=== PATIENT | female | born 1995 | race Caucasian/White ===

== ENCOUNTER 2020-01-28 12:58 | Outpatient (REF) | payer MEDICAID, SELFPAY | END 2020-01-28 13:18 | LOC: NCHCN 12:58 | PROVIDERS: PCP Pediatrics; Visit Provider Nurse Practitioner Family | DX: R30.0 Dysuria (principal) | CPT/HCPCS: 87086 ==

== ENCOUNTER 2020-02-12 19:33 | Outpatient (REF) | payer MEDICAID, SELFPAY ==
[2020-02-15 09:40] LABS: COVID-19 RT-PCR Result NEGATIVE (Negative)
== END 2020-02-12 19:53 ==
LOC: NCHCN 19:33
PROVIDERS: PCP Pediatrics; Visit Provider Nurse Practitioner Family
DX: Z20.828 Contact with and (suspected) exposure to other viral communicable diseases (principal)
CPT/HCPCS: U0003

== ENCOUNTER 2020-06-13 13:09 | Outpatient (REF) | payer MEDICAID, SELFPAY ==
--- NOTE | 2020-06-13 11:35 | PAPFT_PTH ---
PATIENT: Melina Robledo LOC: [facility]#:[id number] AGE/SX: 24/F ROOM: RE06/13/[address]: Inge Chatman : 1995 BED: DIS: 06/13/2020 SPEC #: [id number] RECD: 06/16/20 12:54 STATUS: NICOLA REChayo #: [id number] LAMAR: 06/13/20 11:[address]: Inge Chatman DEPT: [facility] Cytology RECD BY: Alyson Flanagan ENTERED: 06/16/20 12:54 SP TYPE: PAPFT OTHR DR: Renny Guzman MD Tissues: 1 - CX/ENDOCX FOR PAP SMEARS Procedures: PAP THIN PREP/[facility] Screening Comments: [id number] (CHLAMYDIA/GC)
[2020-06-17 14:14] LABS: Chlamydia Result Negative (Negative); GC Result Negative (Negative)
== END 2020-06-13 13:10 | disposition home or self-care (01) ==
LOC: NCHCN 13:09
PROVIDERS: PCP Pediatrics; Visit Provider Nurse Practitioner Family
DX: Z12.4 Encounter for screening for malignant neoplasm of cervix (principal); Z11.3 Encounter for screening for infections with a predominantly sexual mode of transmission; Z01.419 Encounter for gynecological examination (general) (routine) without abnormal findings
CPT/HCPCS: 87491; 87591; 88142

== ENCOUNTER 2021-02-17 21:01 | Emergency (ER) | payer MEDICAID, SELFPAY ==
--- NOTE | 2021-02-17 21:00 | DI.CT_ITS ---
Exam(s) CT RENAL COLIC WO EXAM: CT RENAL COLIC WO CLINICAL HISTORY: left flank pain, sudden onset. TECHNIQUE: Imaging Protocol: Axial computed tomography images with coronal and sagittal reformatted images were created and reviewed. COMPARISON: No exams were available for comparison FINDINGS: ABDOMEN: Lung Bases: Normal where visualized. Liver: Normal density. No measurable mass. Gallbladder and biliary tract: No radiodense calculus or biliary ductal dilation. Pancreas: Normal density, no abnormal calcifications or inflammatory process. Spleen: Normal. Kidneys: Normal size, contour and axis.Bilateral nephrolithiasis. There is a 4 mm stone in the proxi mal left ureter causing moderate hydronephrosis. No masses seen. Adrenal glands: No mass is seen. Lymph nodes: Within normal limits. Abdominal Aorta: Abdominal portion non-dilated. PELVIS: Bladder:Symmetric distention, no gross wall thickening. Bowel: No obstruction or bowel wall thickening. No evidence of appendicitis. Peritoneal cavity: There is a trace amount of free fluid in the cul-de-sac which may be physiologic. No free air. Reproductive organs: There is an IUD in good position. There is a 3.1 cm cyst in the left adnexa lik nigel ovarian in origin. Bones: Within normal limits. Soft Tissues: Within normal limits. IMPRESSION: 4 mm proximal left ureteral stone causing moderate hydronephrosis. RADIATION DOSE DELIVERED: 606.91mGy.cm Total DLP DATA REPOSITORY: All CT scans at this facility are submitted to the National Radiology Data Registry (NRDR) Dose Index Registry (DIR) with the [employer] (ACR). RADIATION OPTIMIZATION: All CT scans at this facility use at least one of these dose optimization te chniques: automated exposure control; mA and/or kV adjustment per patient size (includes targeted exa ms where dose is matched to clinical indication); or iterative reconstruction.
[2021-02-17 21:03] VITALS: BP 124/87; PULSE 86; RESP 18; TEMP 36.7; O2SAT 100
[2021-02-17 21:28] LABS: Abs Immature Grans 0.02 10^3/uL (0.0-0.06); Absolute Basophil Count 0.04 10^3/uL (0.0-0.2); Absolute Eosinophil Count 0.19 10^3/uL (0.0-0.7); Absolute Lymphocyte Count 2.44 10^3/uL (1.2-3.4); Absolute Monocyte Count 0.56 10^3/uL (0.1-0.8); Absolute Neutrophil Count 4.76 10^3/uL (1.2-6.7); Basophils % 0.5; Eosinophils % 2.4; HCT 38.5 % (36.0-46.0); HGB 12.9 g/dL (11.2-15.7); Immature Grans % 0.2; Lymphocytes % 30.5; MCH 30.4 pg (27.0-33.0); MCHC 33.5 % (32.0-36.0); MCV 90.6 fL (80-95); MPV 10.4 fL (8.0-11.0); Neutrophils % 59.4; Nucleated RBC 0 %; Platelet Count 221 10^3/uL (130-400); RBC 4.25 10^6/uL (3.93-5.22); RDW 11.9 % (11.7-14.6); RDW-SD 39.9 fL; WBC 8.01 10^3/uL (4.4-10.8)
[2021-02-17 21:42] LABS: ALT 17 U/L (14-59); AST 16 U/L (15-37); Albumin 4.4 g/dL (3.4-5.0); Alkaline Phosphatase 89 U/L (46-116); BUN 11 mg/dL (7-18); Bilirubin, Total 0.3 mg/dL (0.2-1.0); Chloride 103 mmol/L (98-107); Glucose 100 mg/dL (74-106); Sodium 140 mmol/L (136-145); Total Protein 7.7 g/dL (6.4-8.2)
[2021-02-17] MEDS: Ketorolac 30 MG/ML VIAL IVP (21:45)
[2021-02-17] MEDS: Normal Saline 1,000 ML 1000 ML IV (22:08)
[2021-02-17 22:28] LABS: Bilirubin Negative (Negative); Blood Large (Negative); Clarity Cloudy (Clear); Glucose Negative (Negative); Ketones Trace mg/dL (Negative); Leukocyte Esterase Negative (Negative); Nitrite Negative (Negative); Specific Gravity >= 1.030 (1.005-1.025); Urobilinogen 0.2 EU/dL (Up TO 0.2)
--- NOTE | 2021-02-17 22:28 | W.ED.GENAD ---
Discharge Plan Disposition Patient Disposition: HOME Condition: Good Discharge Details Clinical Impression: Kidney stone Primary Care Provider: Inge Chatman ED Provider: Santiago Gomez Home Meds and New Rx's Prescriptions: New tamsulosin [Flomax] 0.4 mg capsule 0.4 mg PO DAILY Qty: 7 RF: 0 Continued Mirena 1 EACH intrauterine device 1 ea Intrauterine ONCE Qty: 1 RF: 0 tretinoin 20 GM cream 1 amanda Topical HS Qty: 20 RF: 0 clindamycin-benzoyl peroxide [Benzaclin] 25 GM gel 1 amanda Topical DAILY Qty: 25 RF: 0 Discharge Instructions Instructions: Kidney Stones (ED) Additional Instructions: At this time your CAT scan shows evidence of a kidney stone. It will take some time to pass. Please take the Flomax as directed. Please take Tylenol and Motrin as needed for pain. We have given you a few Adamant pain pills to be used as needed only for breakthrough pain. They do contain Tylenol in them, so do not take any Tylenol with them. If you notice any worsening of your symptoms, or any new symptoms such as vomiting, diarrhea, fever, chills, shortness of breath, chest pain, numbness, weakness, or fainting , please return immediately to the emergency department for reevaluation. Please follow up with your primary care provider as soon as possible for reassessment and reevaluation. As always, it was a pleasure participating in your medical care today. Referrals: Inge Chatman [Primary Care Provider] - Medical Decision Making 25-year-old female with no significant past medical history presents today for evaluation of left flank pain. Patient states that 1 hour ago she developed sudden onset left flank pain she describes as achy and sharp in nature. Radiates down to the left mid flank. She denies any fever or chills. She denies any urinary changes. She denies any vomiting or diarrhea but does admit to nausea. She denies any history of kidney stones but does have a family history of kidney stones. She denies any vaginal discharge. She has no other complaints at this time. She did take Tylenol prior to arrival with no significant improvement. Physical exam demonstrates mild left CVA tenderness. No reproducible abdominal tenderness though. Symptoms at this time are inconsistent with dissection or aneurysm, and are most concerning with mild hematuria/kidney stone. Will give Toradol IV, gently rehydrate, get a CT scan, monitor closely and reassess. 10:[address] scan shows evidence of a mild 3 mm obstructing proximal left ureteral stone. No evidence of acute appendicitis or other significant abnormality. Laboratory work-up is unremarkable, renal function normal, urinalysis shows blood but no evidence of infection. Pain well controlled with Toradol. At this time patient's pain is well controlled and she is able to tolerate p.o. Renal function good, no evidence of infection requiring antibiotics or admission. Patient stable for discharge. Will give a dose of Flomax here, and a prescription for home. Will give a small bottle of Adamant pills for pain control as needed. Patient will be discharged home with recommended close follow-up with her PCP. Discussed concerning red flags which would represent/reflect a lack of passage of the stone. Will give strainer for home use. Discussed red flags which to return. I have extensively reviewed the treatment plan and discharge instructions with the patient. I have addressed all patient concerns at this time. The patient was made aware of what symptoms to monitor for that would warrant a return to the emergency department. Discussed the plan with the patient, they demonstrate verbal understanding and agreement with our assessment and plan at this time. The documentation in this chart was dictated using [address] dictation software. Please excuse any dictation errors. FINDINGS: Lungs: Lung bases are unremarkable. Liver: No gross mass. Gallbladder and bile ducts: No calcified stones. No definite gallbladder wall thickening or biliary dilatation. Pancreas: No mass or peripancreatic edema. Spleen: No splenomegaly. Adrenal glands: No adrenal nodule. Kidneys and ureters: There is a 3 mm calcified stone within the proximal left ureter resulting in moderate left hydroureteral nephrosis. There are a few 1 mm left renal medullary calculi. There is a 1 mm right lower pole renal stone. Left kidney is mildly enlarged. No perinephric stranding. Stomach and bowel: Stomach is grossly unremarkable. No small or large bowel dilatation. No definite bowel wall thickening. Appendix: No evidence of appendicitis. Intraperitoneal space: Small amount of cul-de-sac fluid. Vasculature: No abdominal aortic aneurysm. Lymph nodes: No significant adenopathy. Urinary bladder: No bladder stone. No definite bladder wall thickening. Reproductive: 2.2 cm probable left ovarian dominant follicle. IUD within an anteverted uterus. Bones/joints: No significant bony or joint space abnormality. Soft tissues: Extra-abdominal soft tissues are unremarkable. IMPRESSION: 1. 3 mm obstructing proximal left ureteral stone. 2. Additional minimal medullary nephrolithiasis. Thank you for allowing us to participate in the care of your patient. Dictated and Authenticated by: Mello Shaw MD 02/17/2021 10:31 PM Eastern Time ([place] & [place]) HPI General Date/Time Provider Initiated Documentation: 02/17/21 21:03. HPI Narrative: 25-year-old female with no significant past medical history presents today for evaluation of left flank pain. Patient states that 1 hour ago she developed sudden onset left flank pain she describes as achy and sharp in nature. Radiates down to the left mid flank. She denies any fever or chills. She denies any urinary changes. She denies any vomiting or diarrhea but does admit to nausea. She denies any history of kidney stones but does have a family history of kidney stones. She denies any vaginal discharge. She has no other complaints at this time. She did take Tylenol prior to arrival with no significant improvement. Related Data Home Medications Medication Instructions Recorded Confirmed Mirena 1 ea INTRAUTERINE ONCE #1 implant 09/15/17 02/17/21 clindamycin-benzoyl peroxide 1 amanda TOPICAL DAILY #25 gm 11/09/17 02/17/21 [Benzaclin] tretinoin 1 amanda TOPICAL HS #20 gm 11/09/17 02/17/21 tamsulosin [Flomax] 0.4 mg PO DAILY #7 cap 02/17/21 Previous Rx's Medication Instructions Recorded tamsulosin [Flomax] 0.4 mg PO DAILY #7 cap 02/17/21 Allergies Allergy/AdvReac Type Severity Reaction Status Date / Time No Known Allergies Allergy Unverified 02/17/21 21:06 General Stated Complaint: FlankPain JOHANNY: 3 Review of Systems All systems reviewed & are unremarkable except as noted in HPI and below PFSH Active Problem List Kidney stone (Chronic) Medical History Idiopathic scoliosis mild Vasovagal syncope Seen [facility]- 07/24 Family History Other Personal history of malignant neoplasm mat/pat sides-prostate, colon, bone Social History Smoking/Tobacco Use Status: Former Tobacco Use Smoking risk assessment performed?: Yes Alcohol Intake: never Drug use: Never Substance use type: does not use Do you feel safe at home: Yes Do you feel safe in your relationship?: Yes Exam Narrative Exam Narrative: 1.Const: Well-nourished, Well-developed, appearing stated age 2.Eyes: PERRL, no conjunctival injection, and symmetrical lids. 3.ENT: Atraumatic external nose and ears. Moist MM. Neck: Symmetric, trachea midline, No thyromegaly. 4.CVS: +S1/S2, No murmurs or gallops. Peripheral pulses 2+ and equal in all extremities. Brisk capillary refill in all extremities. 5.RESP: Unlabored respiratory effort. Clear to auscultation bilaterally. No wheezes rales or rhonchi 6.GI: Soft, Nontender/Nondistended, No hepatosplenomegaly. No guarding or rebound. Mild left flank pain on percussion. No pain to McBurney's point, negative Canales sign. No right CVA tenderness. 7.MSK: Normocephalic/Atraumatic, Extremities w/o deformity or ttp No cyanosis or clubbing, Normal movement of all extremities 8.Skin: Warm, Dry. No rashes or lesions. 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 Sensation grossly intact, no focal neurologic deficits. 10.Psych: (AAO) x3. Appropriate mood and affect Course Vital Signs Vital signs: Vital Signs Temperature 36.7 C 02/17/21 21:03 Pulse 86 02/17/21 21:03 Respiratory Rate 18 02/17/21 21:03 Blood Pressure 124/87 02/17/21 21:03 Pulse Oximetry 100 02/17/21 21:03 Temperature 36.7 C 02/17/21 21:03 Temperature Source Temporal Artery Scan 02/17/21 21:03 Pulse 86 02/17/21 21:03 Respiratory Rate 18 02/17/21 21:03 Respiratory Effort Non-Labored 02/17/21 21:06 Blood Pressure 124/87 02/17/21 21:03 Blood Pressure Position Sitting 02/17/21 21:03 Pulse Oximetry 100 02/17/21 21:03 Oxygen Delivery Method Room Air 02/17/21 21:03 Oxygen Flow Rate 0 02/17/21 21:03 Pain Level 5 02/17/21 21:25 Lab/Test Results Lab/Test Results: Laboratory Tests Range/Units 02/17/21 02/17/21 21:19 21:19 WBC (4.4-10.8) 10^3/uL 8.01 RBC (3.93-5.22) 10^6/uL 4.25 Hgb (11.2-15.7) g/dL 12.9 Hct (36.0-46.0) % 38.5 MCV (80-95) fL 90.6 MCH (27.0-33.0) pg 30.4 MCHC (32.0-36.0) % 33.5 RDW (11.7-14.6) % 11.9 Plt Count (130-400) 10^3/uL 221 MPV (8.0-11.0) fL 10.4 Immature Gran % 0.2 Neutrophils % 59.4 Lymphocytes % 30.5 Monocytes % 7.0 Eosinophils % 2.4 Basophils % 0.5 Nucleated RBC % % 0 Absolute Neutrophils (1.2-6.7) 10^3/uL 4.76 Absolute Lymphocytes (1.2-3.4) 10^3/uL 2.44 Absolute Monocytes (0.1-0.8) 10^3/uL 0.56 Absolute Eosinophils (0.0-0.7) 10^3/uL 0.19 Absolute Basophils (0.0-0.2) 10^3/uL 0.04 Sodium (136-145) mmol/L 140 Potassium (3.5-5.1) mmol/L 4.0 Chloride (98-107) mmol/L 103 Carbon Dioxide (21.0-32.0) mmol/L 28.0 Anion Gap (3-11) mmol/L 9.0 BUN (7-18) mg/dL 11 Creatinine (0.55-1.02) mg/dL 1.0 Estimated GFR/1.73 m2 (mL/min/1.73m2) >= 60.00 Glucose (74-106) mg/dL 100 Calcium (8.5-10.1) mg/dL 9.0 Total Bilirubin (0.2-1.0) mg/dL 0.3 AST (15-37) U/L 16 ALT (14-59) U/L 17 Alkaline Phosphatase (46-116) U/L 89 Total Protein (6.4-8.2) g/dL 7.7 Albumin (3.4-5.0) g/dL 4.4 POC- Test(urine) Negative
[2021-02-17 22:31] LABS: Epithelial Cells Rare HPF (Negative); RBC >50 HPF (0-2)
[2021-02-17 22:32] LABS: Bacteria Moderate HPF (Negative); C & S Indicated? Yes; Casts Negative LPF (Negative); Crystals Few Calcium Oxalate HPF (Negative); Mucus Trace (Negative)
--- NOTE | 2021-02-17 22:32 | DI.VRAD_ITS ---
PROCEDURE INFORMATION: Exam: CT Abdomen And Pelvis Without Contrast Exam date and time: 02/17/2021 9:09 PM Age: 25 years old Clinical indication: Patient HX: Left flank pain, sudden onset TECHNIQUE: Imaging protocol: Computed tomography of the abdomen and pelvis without contrast. Total images: 1147 Radiation optimization: All CT scans at this facility use at least one of these dose optimization techniques: automated exposure control; mA and/or kV adjustment per patient size (includes targeted exams where dose is matched to clinical indication); or iterative reconstruction. COMPARISON: US PELVIS 07/02/2020 1:14 PM FINDINGS: Lungs: Lung bases are unremarkable. Liver: No gross mass. Gallbladder and bile ducts: No calcified stones. No definite gallbladder wall thickening or biliary dilatation. Pancreas: No mass or peripancreatic edema. Spleen: No splenomegaly. Adrenal glands: No adrenal nodule. Kidneys and ureters: There is a 3 mm calcified stone within the proximal left ureter resulting in moderate left hydroureteral nephrosis. There are a few 1 mm left renal medullary calculi. There is a 1 mm right lower pole renal stone. Left kidney is mildly enlarged. No perinephric stranding. Stomach and bowel: Stomach is grossly unremarkable. No small or large bowel dilatation. No definite bowel wall thickening. Appendix: No evidence of appendicitis. Intraperitoneal space: Small amount of cul-de-sac fluid. Vasculature: No abdominal aortic aneurysm. Lymph nodes: No significant adenopathy. Urinary bladder: No bladder stone. No definite bladder wall thickening. Reproductive: 2.2 cm probable left ovarian dominant follicle. IUD within an anteverted uterus. Bones/joints: No significant bony or joint space abnormality. Soft tissues: Extra-abdominal soft tissues are unremarkable. IMPRESSION: 1. 3 mm obstructing proximal left ureteral stone. 2. Additional minimal medullary nephrolithiasis. Dictated and Authenticated by: Mello Shaw MD. Ordering:JONI Henderson MD
[2021-02-17] MEDS: Tamsulosin 0.4 MG CAPCR PO (22:33)
[2021-02-17 22:44] VITALS: BP 124/87; PULSE 86; RESP 18; TEMP 36.7; O2SAT 100
== END 2021-02-17 22:43 | disposition home or self-care (01) ==
PROVIDERS: Emergency Provider Student in an Organized Health Care Education/Training Program; PCP Nurse Practitioner Family
DX: N13.2 Hydronephrosis with renal and ureteral calculous obstruction (principal); Z87.440 Personal history of urinary (tract) infections
CPT/HCPCS: 36415; 80053; 81025; 96361; 96374; 99284; 74176; 81003; 81015; 85025; 87086; J1885

== ENCOUNTER 2021-03-15 19:04 | Emergency (ER) | payer MEDICAID, SELFPAY ==
[2021-03-15 19:07] VITALS: BP 132/87; PULSE 83; RESP 18; TEMP 36.6; O2SAT 98
--- NOTE | 2021-03-15 19:15 | DI.CT_ITS ---
Exam(s) CT RENAL COLIC WO EXAM: CT RENAL COLIC WO CLINICAL HISTORY: Left Flank pain. TECHNIQUE: Imaging Protocol: Axial computed tomography images with coronal and sagittal reformatted images were created and reviewed. CONTRAST MATERIAL: Noncontrast COMPARISON: CT CT RENAL COLIC WO from 02/17/2021 FINDINGS: ABDOMEN: Lung Bases: Normal where visualized. Liver: Normal attenuation. No measurable mass. Gallbladder and biliary tract: No radiodense calculus or dilation. Pancreas: Normal density, no calcifications or inflammatory process. Spleen: Normal. Kidneys: Normal size, contour and axis. No masses seen. 4 millimeter stone left ureterovesical junc tion causing moderate hydronephrosis, mildly increased from the previous exam. The stone was seen in the upper ureter on the prior study. Other punctate, nonobstructing stones are seen bilaterally. Adrenal glands: No masses seen. Abdominal Aorta: Abdominal portion non-dilated. PELVIS: Bladder: Symmetric distention, no gross wall thickening. Reproductive: IUD in position. Bowel: No obstruction or bowel wall thickening. Peritoneal cavity: No ascites, collection or mesenteric inflammatory response. Bones: Within normal limits. IMPRESSION: Previously noted 4 millimeter stone is now noted at the left ureterovesical junction causing moderate hydronephrosis, mildly increased from the prior study. RADIATION DOSE DELIVERED: 545.02mGy.cm Total DLP DATA REPOSITORY: All CT scans at this facility are submitted to the National Radiology Data Registry (NRDR) Dose Index Registry (DIR) with the [employer] (ACR). RADIATION OPTIMIZATION: All CT scans at this facility use at least one of these dose optimization te chniques: automated exposure control; mA and/or kV adjustment per patient size (includes targeted exa ms where dose is matched to clinical indication); or iterative reconstruction.
--- NOTE | 2021-03-15 19:20 | ED.GENADUL_ITS ---
Discharge Plan Disposition Patient Disposition: HOME Condition: Stable Discharge Details Clinical Impression: Kidney stone Primary Care Provider: Inge Chatman ED Provider: Nevaeh Acosta Home Meds and New Rx's Prescriptions: New tamsulosin 0.4 mg capsule 0.4 mg PO DAILY 7 Days Qty: 7 RF: 0 No Action Mirena 1 EACH intrauterine device 1 ea Intrauterine ONCE Qty: 1 RF: 0 tretinoin 20 GM cream 1 amanda Topical HS Qty: 20 RF: 0 clindamycin-benzoyl peroxide [Benzaclin] 25 GM gel 1 amanda Topical DAILY Qty: 25 RF: 0 tamsulosin [Flomax] 0.4 mg capsule 0.4 mg PO DAILY Qty: 7 RF: 0 Discharge Instructions Instructions: Kidney Stones (ED) Additional Instructions: Continue to strain all your urine. Please return to be seen sooner for any fever, problems urinating or worsening pain not relieved by medications. Please do not take any additional Tylenol with the Percocet. Follow up with primary care provider in 3-5 days. Return to ED sooner if any worsening or concerns. Increase oral fluids. Please take Ibuprofen with food every 4-6 hours as needed for pain and swelling. Tamsulosin was sent to the pharmacy on file. Please follow-up with urology you are placed on a care management list to assist you with getting an appointment. Referrals: Marshal Hobbs MD [ [facility] STAFF PHYSICIAN] - 1 week Niharika Garcia DNP [NURSE PRACTITIONER] - 1 week Medical Decision Making 24-year-old female presents the ER chief complaint of left flank pain which worsened today around 1 PM. She reports that she was seen a couple weeks ago and was diagnosed with 4 kidney stones on the left 3 in the kidney and 1 in the ureter. She denies any nausea vomiting with this episode. She last took some Tylenol ibuprofen around 3 PM. Denies any fever. Patient has no significant past medical history besides kidney stones. Upon initial exam patient is declining an IV at this time. Urinalysis, urine , CT without contrast ordered. Zofran ODT and 10 mg Toradol p.o. Urinalysis shows specific gravity greater than 1030 blood moderate no leukocytes no nitrites 5-[address] RENAL COLIC WO 02/17/2021 9:27 PM FINDINGS: Liver: Normal. No mass. Gallbladder and bile ducts: Normal. No calcified stones. No ductal dilation. Pancreas: Normal. No ductal dilation. Spleen: Normal. No splenomegaly. Adrenal glands: Normal. No mass. Kidneys and ureters: There is a 3 x 4 x 3 mm distal left ureteral stone at the left ureterovesical junction, as seen on image 108, series 2 and coronal image 32, series 3. On prior study, there was an identical sized stone within the proximal aspect of the left ureter, likely representing the distal ureteral stone on the current study. There is [id number] left hydroureter and hydronephrosis, mildly increased from prior study. Again noted are 2 punctate nonobstructing left renal stones as well as 2 punctate nonobstructing right renal stones. Stomach and bowel: Unremarkable. No obstruction. No mucosal thickening. Appendix: No evidence of appendicitis. Intraperitoneal space: There is a tiny amount of free fluid in the pelvis, unchanged. Vasculature: Unremarkable. No abdominal aortic aneurysm. Lymph nodes: Unremarkable. No enlarged lymph nodes. Urinary bladder: Unremarkable as visualized. Reproductive: Again noted is an IUD within the uterus in the fundus and upper body region. 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 Soft tissues: Unremarkable. IMPRESSION: 1. 3 x 4 x 3 mm obstructing distal left ureteral stone in the region of the left ureterovesical junction with associated mild to moderate left hydroureter and left hydronephrosis, mildly increased from prior study. This stone resided within the proximal aspect of the left ureter on prior study. 2. Bilateral punctate nonobstructing renal stones. Thank you for allowing us to participate in the care of your patient. Dictated and Authenticated by: Yann Sierra MD Will discuss results with patient and refer to urology for further treatment and evaluation. Patient instructed on continuing to strain urine and discussed strict return instructions and follow up with urology. Patient given 2 tablets of Percocet to go and prescription for tamsulosin. This text was generated using Teamieation system, please disregard any oddities of phrase or misspellings. HPI General Mode of arrival: ambulatory . Date/Time Provider Initiated Documentation: 03/15/21 19:05 . Limitations to Documentation: no limitations . Information obtained by: patient, RN notes reviewed and old records reviewed . HPI Narrative: 24-year-old female presents the ER chief complaint of left flank pain which worsened today around 1 PM. She reports that she was seen a couple weeks ago and was diagnosed with 4 kidney stones on the left 3 in the kidney and 1 in the ureter. She denies any nausea vomiting with this episode. She last took some Tylenol ibuprofen around 3 PM. Denies any fever. Patient has no significant past medical history besides kidney stones. Upon initial exam patient is declining an IV at this time. Related Data Home Medications Medication Instructions Recorded Confirmed Mirena 1 ea INTRAUTERINE ONCE #1 implant 09/15/17 02/17/21 clindamycin-benzoyl peroxide 1 amanda TOPICAL DAILY #25 gm 11/09/17 02/17/21 [Benzaclin] tretinoin 1 amanda TOPICAL HS #20 gm 11/09/17 02/17/21 tamsulosin [Flomax] 0.4 mg PO DAILY #7 cap 02/17/21 tamsulosin 0.4 mg PO DAILY 7 Days #7 cap 03/15/21 Previous Rx's Medication Instructions Recorded tamsulosin [Flomax] 0.4 mg PO DAILY #7 cap 02/17/21 tamsulosin 0.4 mg PO DAILY 7 Days #7 cap 03/15/21 Allergies Allergy/AdvReac Type Severity Reaction Status Date / Time No Known Allergies Allergy Unverified 02/17/21 21:06 General Stated Complaint: FlankPain JOHANNY: 4 Review of Systems All systems reviewed & are unremarkable except as noted in HPI and below Genitourinary Genitourinary: Reports flank pain PFSH All Active Problems (Updated 03/15/21 @ 20:49 by Nevaeh Acosta) Kidney stone (Chronic) Medical History Idiopathic scoliosis mild Vasovagal syncope Seen [facility]- 07/24 Family History Other Personal history of malignant neoplasm mat/pat sides-prostate, colon, bone Social History Smoking/Tobacco Use Status: Former Tobacco Use Smoking risk assessment performed?: Yes Alcohol Intake: never Drug use: Never Substance use type: does not use Do you feel safe at home: Yes Do you feel safe in your relationship?: Yes Exam Narrative Exam Narrative: Constitutional: Alert and oriented x3. Appears stated age. Normal body habitus. Head: Normocephalic, no trauma. Eyes: Pupils PERRL, Red reflex noted, EOM's intact. Eyelids symmetrical without lesions, discharge, or swelling. ENT: Bilateral TM's WNL, External ear normal to inspection, no mastoid TTP, swelling, or erythema, Nasal turbinates WNL, no nasal discharge. Normal dentition, Posterior pharynx WNL, no exudate. Chest: RRR, Normal S1, S2, distal pulses intact. Resp: Lungs clear to auscultation bilaterally, no wheezes, rales, or rhonchi. Abdomen: Soft, non-distended, Normoactive bowel sounds all 4 quads. Musculoskeletal: Normal gait, 5/5 strength to all four extremities. Skin: No suspicious rashes or lesions. Capillary refill less than 2 sec. Neurologic: Cranial nerves II-XII intact. Alert and oriented x 3. Motor: No defi cits noted. Sensory: Intact bilaterally all 4 extremities. Reflexes: DTR's intact bilaterally.. Hematologic/Lymphatic: No ecchymosis, no lymphadenopathy. Course Vital Signs Vital signs: Vital Signs Temperature 36.6 C 03/15/21 19:07 Pulse 83 03/15/21 19:07 Respiratory Rate 18 03/15/21 19:07 Blood Pressure 132/87 03/15/21 19:07 Pulse Oximetry 98 03/15/21 19:07 Temperature 36.6 C 03/15/21 19:07 Temperature Source Temporal Artery Scan 03/15/21 19:07 Pulse 83 03/15/21 19:07 Respiratory Rate 18 03/15/21 19:07 Respiratory Effort 03/15/21 19:13 Blood Pressure 132/87 03/15/21 19:07 Blood Pressure Position Supine 03/15/21 19:07 Pulse Oximetry 98 03/15/21 19:07 Oxygen Delivery Method Room Air 03/15/21 19:07 Oxygen Flow Rate 0 03/15/21 19:07 Pain Level 7 03/15/21 19:07 Lab/Test Results Lab/Test Results: POC- Test(urine) Negative
[2021-03-15 19:21] LABS: Bilirubin Negative (Negative); Blood Moderate (Negative); Clarity Clear (Clear); Glucose Negative (Negative); Ketones Negative (Negative); Leukocyte Esterase Negative (Negative); Nitrite Negative (Negative); Specific Gravity >= 1.030 (1.005-1.025); Urobilinogen 0.2 EU/dL (Up TO 0.2); pH 5.5 (5-8)
[2021-03-15] MEDS: Ketorolac 10 MG TAB PO (19:26)
[2021-03-15] MEDS: Ondansetron O.D.T. 4 MG TABEF PO (19:27)
[2021-03-15 19:42] LABS: Bacteria Few HPF (Negative); C & S Indicated? No; Casts Negative LPF (Negative); Crystals Negative HPF (Negative); Epithelial Cells Moderate HPF (Negative); Mucus Negative (Negative); WBC Negative HPF (0-5)
--- NOTE | 2021-03-15 20:35 | DI.VRAD_ITS ---
PROCEDURE INFORMATION: Exam: CT Abdomen And Pelvis Without Contrast Exam date and time: 03/15/2021 7:20 PM Age: 25 years old Clinical indication: Patient HX: Left flank pain, known stones per patient TECHNIQUE: Imaging protocol: Computed tomography of the abdomen and pelvis without contrast. Radiation optimization: All CT scans at this facility use at least one of these dose optimization techniques: automated exposure control; mA and/or kV adjustment per patient size (includes targeted exams where dose is matched to clinical indication); or iterative reconstruction. COMPARISON: CT RENAL COLIC WO 02/17/2021 9:27 PM FINDINGS: Liver: Normal. No mass. Gallbladder and bile ducts: Normal. No calcified stones. No ductal dilation. Pancreas: Normal. No ductal dilation. Spleen: Normal. No splenomegaly. Adrenal glands: Normal. No mass. Kidneys and ureters: There is a 3 x 4 x 3 mm distal left ureteral stone at the left ureterovesical junction, as seen on image 108, series 2 and coronal image 32, series 3. On prior study, there was an identical sized stone within the proximal aspect of the left ureter, likely representing the distal ureteral stone on the current study. There is [id number] left hydroureter and hydronephrosis, mildly increased from prior study. Again noted are 2 punctate nonobstructing left renal stones as well as 2 punctate nonobstructing right renal stones. Stomach and bowel: Unremarkable. No obstruction. No mucosal thickening. Appendix: No evidence of appendicitis. Intraperitoneal space: There is a tiny amount of free fluid in the pelvis, unchanged. Vasculature: Unremarkable. No abdominal aortic aneurysm. Lymph nodes: Unremarkable. No enlarged lymph nodes. Urinary bladder: Unremarkable as visualized. Reproductive: Again noted is an IUD within the uterus in the fundus and upper body region. 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 Soft tissues: Unremarkable. IMPRESSION: 1. 3 x 4 x 3 mm obstructing distal left ureteral stone in the region of the left ureterovesical junction with associated mild to moderate left hydroureter and left hydronephrosis, mildly increased from prior study. This stone resided within the proximal aspect of the left ureter on prior study. 2. Bilateral punctate nonobstructing renal stones. Dictated and Authenticated by: Yann Sierra MD. Ordering:SOHEILA Herring MD
--- NOTE | 2021-03-15 20:45 | NUR.NOTE ---
Referral faxed to [facility]rology to f/u in one week for a UVJ Stone.Nursing Note:
[2021-03-15] MEDS: oxyCODONE 5 mg/Acetaminophen 325 mg TAB 2 TAB PO (20:55)
[2021-03-15] MEDS: Tamsulosin 0.4 MG CAPCR PO (20:55)
== END 2021-03-15 21:00 | disposition home or self-care (01) ==
PROVIDERS: Emergency Provider Registered Nurse Emergency; PCP Nurse Practitioner Family
DX: N20.2 Calculus of kidney with calculus of ureter (principal); Z87.442 Personal history of urinary calculi
CPT/HCPCS: 81025; 99284; 74176; 81003; 81015; 99283

== ENCOUNTER 2021-03-16 17:23 | Outpatient (REF) | payer MEDICAID, SELFPAY ==
[2021-03-16 15:37] LABS: Source Nasal/Nares
[2021-03-16 19:37] LABS: COVID-19 PCR Negative (Negative)
== END 2021-03-16 17:24 | disposition home or self-care (01) ==
LOC: NCHCN 17:23
PROVIDERS: PCP Nurse Practitioner Family; Visit Provider Urology
DX: Z20.822 Contact with and (suspected) exposure to COVID-19 (principal); Z01.818 Encounter for other preprocedural examination
CPT/HCPCS: 87635

== ENCOUNTER 2021-03-18 15:45 | Outpatient (REF) | payer MEDICAID, SELFPAY ==
[2021-03-21 16:04] LABS: Chlamydia Result Negative (Negative); GC Result Negative (Negative)
== END 2021-03-18 15:46 | disposition home or self-care (01) ==
LOC: LBN 15:45
PROVIDERS: PCP Nurse Practitioner Family; Visit Provider Obstetrics & Gynecology
DX: Z11.3 Encounter for screening for infections with a predominantly sexual mode of transmission (principal); N89.8 Other specified noninflammatory disorders of vagina
CPT/HCPCS: 87491; 87591; 87480; 87510; 87660

== ENCOUNTER 2021-03-19 10:10 | Day surgery (SDC) | payer MEDICAID, SELFPAY ==
[2021-03-19] VITALS (8 sets, daily range): BP systolic 86–110; BP diastolic 50–76; PULSE 49–89; RESP 14–18; TEMP 36.2–36.7; O2SAT 98–100; BMI 19.3
[2021-03-19] MEDS: Lactated Ringers 1,000 ML 80 ML IV (10:45)
--- NOTE | 2021-03-19 10:49 | W.ANESPRE ---
General Info Date of Service Date Performed: 03/19/21 Height: 5 ft 7 in Weight: 56.1 kg Body Mass Index (BMI): 19.3 Surgical Procedure: Operation Date: 03/19/21 11:25 Proposed Procedures Side Surgeon p Cystoscopy/Poss.Laser/Retrograde/Ureteroscopy/ Poss. Stent Left Marshal Hobbs MD Meds Allergies and Home Medications Allergies Allergy/AdvReac Type Severity Reaction Status Date / Time No Known Allergies Allergy Verified 03/19/21 10:21 Home Medication Medication Instructions Recorded Mirena 1 ea INTRAUTERINE ONCE #1 implant 09/15/17 tamsulosin 0.4 mg PO DAILY 7 Days #7 cap 03/15/21 ketorolac 10 mg tablet 10 mg PO Q6H PRN #12 tab 03/16/21 ondansetron HCl 4 mg tablet 4 mg PO Q6H PRN #10 tab 03/16/21 tramadol 50 mg tablet 50 mg PO Q6H PRN #12 tab 03/16/21 fluconazole 150 mg tablet 150 mg PO ONCE #2 tab 03/18/21 Current Visit Medications: Current Medications Generic Name Dose Route Start Last Admin Trade Name Freq PRN Reason Stop Dose Admin Ringer's Solution 1,000 mls @ 80 mls/hr 03/19/21 06:00 03/19/21 10:45 IV 04/17/21 23:59 80 mls/hr INFUSION EBONI Administration Cefazolin Sodium/Dextrose 2 gm in 50 mls @ 100 mls/hr 03/19/21 06:00 Ancef Duplex IVPB 03/19/21 16:00 PREOP EBONI IV Miscellaneous Supplies 1 each 03/19/21 06:00 Iv Access IV 04/17/21 23:59 DIRECTED EBONI Sodium Chloride 0 ml 03/19/21 06:00 Normal Saline Flush 10 Ml Syr IV 04/17/21 23:59 PRN PRN Sodium Chloride 0 ml 03/19/21 06:00 Normal Saline 10 Ml Vial IJ 04/17/21 23:59 DIRECTED PRN Sterile Water 0 ml 03/19/21 06:00 Water,Injection,Sterile 10 Ml Vial IJ 04/17/21 23:59 DIRECTED PRN PFSH Active Problems Active Problems: Problem Status Onset Code Yeast vaginitis B37.3 Calculus of distal left ureter N20.1 Kidney stone N20.0 Medical History Medical History Idiopathic scoliosis mild Vasovagal syncope Seen [facility]- 07/24 Tobacco Smoking/Tobacco Use Status: Never Alcohol Alcohol Intake: never Substance Use Substance use: Never Substance use type: does not use Prental History History 0 Para Hx # Term Pregnancies Multiple births Hx # Pregnancies Ectopic pregnancies AB induced Hx Number of Living Children AB spontaneous Vital Signs and Lab Results Vital Signs Most Recent Vital Signs in EMR: Most Recent Vital Signs Temp Pulse Resp BP Pulse Ox 36.7 C 89 16 110/76 100 03/19/21 10:23 03/19/21 10:23 03/19/21 10:23 03/19/21 10:23 03/19/21 10:23 Lab Results Blood Type / Crossmatch: No Data to Display Complete Blood Count: White Blood Count 8.01 10^3/uL (4.4-10.8) 02/17/21 21:19 02/17/21 Red Blood Count 4.25 10^6/uL (3.93-5.22) 02/17/21 21:19 02/17/21 Hemoglobin 12.9 g/dL (11.2-15.7) 02/17/21 21:19 02/17/21 Hematocrit 38.5 % (36.0-46.0) 02/17/21 21:19 02/17/21 Platelet Count 221 10^3/uL (130-400) 02/17/21 21:19 02/17/21 Complete Metabolic Panel: Sodium Level 140 mmol/L (136-145) 02/17/21 21:19 02/17/21 Potassium Level 4.0 mmol/L (3.5-5.1) 02/17/21 21:19 02/17/21 Chloride Level 103 mmol/L (98-107) 02/17/21 21:19 02/17/21 Carbon Dioxide Level 28.0 mmol/L (21.0-32.0) 02/17/21 21:19 02/17/21 Blood Urea Nitrogen 11 mg/dL (7-18) 02/17/21 21:19 02/17/21 Creatinine 1.0 mg/dL (0.55-1.02) 02/17/21 21:19 02/17/21 Estimated GFR/1.73 m2 >= 60.00 (mL/min/1.73m2) 02/17/21 21:19 02/17/21 Calcium Level 9.0 mg/dL (8.5-10.1) 02/17/21 21:19 02/17/21 Albumin 4.4 g/dL (3.4-5.0) 02/17/21 21:19 02/17/21 Glucose Level 100 mg/dL (74-106) 02/17/21 21:19 02/17/21 Liver Function Panel: Alanine Aminotransferase (ALT/SGPT) 17 U/L (14-59) 02/17/21 21:19 02/17/21 Aspartate Amino Transf (AST/SGOT) 16 U/L (15-37) 02/17/21 21:19 02/17/21 Coagulation Panel: No Data to Display Cardiac Panel: No Data to Display Arterial Blood Gas: No Data to Display Venous Blood Gas: No Data to Display Pancreas Panel: No Data to Display Thyroid Panel: No Data to Display Infectious Disease: Coronavirus (COVID-19)(PCR) Negative (Negative) 03/16/21 13:40 03/16/21 Coronavirus 2019 Source Nasal/Nares 03/16/21 13:40 03/16/21 Blood Cultures: No Data to Display Toxicology Panel: No Data to Display Panel: No Data to Display Anesthesia Assessment and Plan Anesthesia History Personal History: No History of Anesthesia Complications Family History: No Family History of Anesthesia Complications Exercise Tolerance Exercise Tolerance: Metabolic Equivalents>4 Pertinent Negatives Pertinent Negatives: No Major Cardiovascular Symptoms or Complaints, No Major Pulmonary Symptoms or Complaints and No History of CVA/TIA Cardiac & Pulmonary Exam Cardiac Exam: Normal S1/S2 Heart Sounds Pulmonary Exam: Clear Bilateral Breath Sounds Implantable Cardiac Device Does patient have a Pacemaker or an ICD?: No Airway Exam Known Difficult Airway: No Mallampati Class: 1 Mouth Opening: Normal (> 3cm) Thyromental Distance: Greater than 3 cm Neck Range of Motion: Full ROM Neck Circumference: Normal Teeth Condition: Normal Dentition ASA Classification ASA Score: ASA 2 Emergency Case?: No NPO Status NPO Status: NPO Clears >2 hours, Solids >8 hours Status Status: Negative HCG (03/15/21 in ER) Anesthesia Plan Resuscitation Status: Full Code Anesthesia Technique: General Anesthesia Airway Planned: LMA Monitors Used: Standard Monitors
--- NOTE | 2021-03-19 11:32 | W.PM.HP.N ---
Date of service: 03/19/21 Time of Service: 11:32 Assessment and Plan Assessment and plan (1) Calculus of distal left ureter: Status: Acute Assessment and plan: We will move forward with left ureteroscopy with stone manipulation History of Present Illness History of Present Illness Chief Complaint: Left ureteral stone Narrative: This is a 25-year-old who presented to the emergency room about 3 weeks ago. At that time, she had nausea and left flank pain. She was concerned that she had a kidney infection. No infection was found, but she was identified as having a 3 to 4 mm left ureteral stone with mild hydronephrosis. She had multiple 1 mm stones in both kidneys. She has had recurrent episodes of discomfort and nausea. Her discomfort is now in the lower left back and is associated with a sensation of needing to void very frequently. She was seen back in the emergency room and her stone has migrated to the left ureterovesical junction. As far as she knows, she had no previous stone episodes. She has no history of gout or hyperparathyroid disease. She tells me that her mother has had kidney stones but only while she was . She has been using Tylenol and ibuprofen at home for pain control. She tried oxycodone and hydrocodone, but did not tolerate them. She has not been given anything to use at home for nausea. She had endoscopy as a child and had no adverse reactions to the anesthetic. Review of Systems Narrative: No fevers or chills No vision change or dysphasia No diabetes or thyroid No shortness of breath, cough or hemoptysis No chest pain or palpitations No nausea, vomiting, hepatitis, ulcers, jaundice, diarrhea or constipation No seizures, strokes or peripheral neuropathy No bleeding disorders or anemia No gout or arthralgia PFSH All Active Problems Yeast vaginitis (Acute) Calculus of distal left ureter (Acute) Kidney stone (Chronic) Medical History Idiopathic scoliosis mild Vasovagal syncope Seen [facility]- 07/24 Family History Other Personal history of malignant neoplasm mat/pat sides-prostate, colon, bone Social History Smoking/Tobacco Use Status: Never Smoking risk assessment performed?: Yes Alcohol Intake: never Drug use: Never Substance use type: does not use Do you feel safe at home: Yes Do you feel safe in your relationship?: Yes Additional Social history: lives alone Female Reproductive History Menstrual control method: progestin IUCD History History 0 Para Hx # Term Pregnancies Multiple births Hx # Pregnancies Ectopic pregnancies AB induced Hx Number of Living Children AB spontaneous Meds Allergies and Home Medications Allergies Allergy/AdvReac Type Severity Reaction Status Date / Time No Known Allergies Allergy Verified 03/19/21 10:21 Home Medications Medication Instructions Recorded Confirmed Type Mirena 1 ea INTRAUTERINE ONCE #1 implant 09/15/17 03/18/21 History tamsulosin 0.4 mg PO DAILY 7 Days #7 cap 03/15/21 03/18/21 Rx ketorolac 10 mg tablet 10 mg PO Q6H PRN #12 tab 03/16/21 03/18/21 Rx ondansetron HCl 4 mg tablet 4 mg PO Q6H PRN #10 tab 03/16/21 03/19/21 Rx tramadol 50 mg tablet 50 mg PO Q6H PRN #12 tab 03/16/21 03/18/21 Rx fluconazole 150 mg tablet 150 mg PO ONCE #2 tab 03/18/21 03/18/21 Rx Exam Const General: cooperative Neck Neck: supple Resp Effort & Inspection: normal respiratory effort Auscultation: clear to auscultation bilaterally Cardio Rate: regular rate Rhythm: regular rhythm GI Inspection: normal to inspection Palpation: soft Neuro General: patient alert, patient awake and patient oriented x3 Results Last Vital Signs Temp 36.7 C 03/19/21 10:23 Pulse 89 03/19/21 10:23 Resp 16 03/19/21 10:23 BP 110/76 03/19/21 10:23 Pulse Ox 100 03/19/21 10:23
[2021-03-19] MEDS: ceFAZolin 2 GM/50 ML BAG IVPB (12:01)
[2021-03-19] MEDS: Lidocaine 2% Jelly 6 ML SYR (12:14)
--- NOTE | 2021-03-19 12:26 | DI.RAD_ITS ---
Exam(s) XR RETROGRADE IN OR EXAM: XR RETROGRADE IN OR CLINICAL HISTORY: Calculus of distal left ureter TECHNIQUE: 2D and realtime digital imaging was performed. CONTRAST MATERIAL: Refer to procedure report. COMPARISON: No exams were available for comparison FINDINGS: Fluoroscopy was provided for Dr. Hobbs during the performance of a retrograde evaluation of the diana l collecting system. Please refer to the procedure report for complete details. Ka,r=1.30 mGy IMPRESSION: RADIATION DOSE DELIVERED:
--- NOTE | 2021-03-19 12:29 | W.PM.DSUDISC ---
Discharge Plan Disposition Patient Disposition: HOME Condition: Stable Discharge Details Reason For Visit: ureteroscopy Attending Provider: Marshal Hobbs Primary Care Provider: Inge Chatman Home Meds and New Rx's Prescriptions: No Action ondansetron HCl [Zofran] 4 mg tablet 4 mg PO Q6H PRN (Reason: nausea and vomiting) Qty: 10 RF: 0 ketorolac 10 mg tablet 10 mg PO Q6H PRN (Reason: pain) Qty: 12 RF: 0 tramadol 50 mg tablet 50 mg PO Q6H PRN (Reason: pain) Qty: 12 RF: 0 fluconazole 150 mg tablet 150 mg PO ONCE Qty: 2 RF: 0 Mirena 1 EACH intrauterine device 1 ea Intrauterine ONCE Qty: 1 RF: 0 tamsulosin 0.4 mg capsule 0.4 mg PO DAILY 7 Days Qty: 7 RF: 0 Discharge Instructions Additional Instructions: no need to strain urine followup 4 to 6 weeks with renal US and stone analysis Activity:: Activity as Tolerated Shower/Bathe:: 24 hours Diet:: As Tolerated Discharge Orders Discharge Orders: Discharge Order (Routine); Ordered 03/19/21 Ordered By: Marshal Hobbs DS: Diagnosis Discharge Diagnosis (1) Calculus of distal left ureter: Status: Acute
--- NOTE | 2021-03-19 12:34 | ROE_ITS ---
Date of service: 03/19/21 Time of Service: 12:34 Operative Note Operative Note DATE OF PROCEDURE: 03/19/21 PRE-OP DIAGNOSIS: left ureteral stone POST-OP DIAGNOSIS: same PROCEDURE: cystoscopy, left retrograde pyelogram, left ureteroscopy with stone extraction SURGEON: Marshal Hobbs ANESTHESIA TYPE: Local By Surgeon and General LMA/ETT Refer to Anesthesia Record ESTIMATED BLOOD LOSS: 0 PATHOLOGY: other (stone for chemical analysis) COMPLICATIONS: None Patient was transported to: PACU Patient's condition: stable Implants: none Indications: This is a 25-year-old woman who presented to the emergency department a month ago with left flank pain. She was found to have a 3 to 4 mm left proximal ureteral stone. She was treated conservatively. She returned to the emergency room about a week ago with left lower quadrant pain, frequency and urgency. On repeat imaging, her stone had migrated to the distal ureter. She has not been able to pass the stone so far. She presents for stone manipulation. Findings: left distal ureteral stone Procedure Description: The patient was given preoperative IV antibiotics. She was brought to the operating room on 03/19/2021. After successful induction of general anesthesia, she was placed in the dorsal lithotomy position. Her genitalia was prepped and draped. 2% Xylocaine jelly was instilled into the urethra. A 22 [place] rigid cystoscope was passed through the urethra and into the bladder. The bladder was inspected using a 30 degree lens. The right ureteral orifice appeared normal. The left orifice appeared edematous and erythematous. No stone was within the lumen of the bladder. He attempted to pass a 6 [place] access catheter through the cystoscope and into the left ureteral orifice. I was unable to do so, but I was able to pass a Glidewire into the orifice and slide the ureteral access catheter over the wire. We were then able to do a retrograde pyelogram by injecting Omnipaque through the access catheter under fluoroscopic guidance. A filling defect was outlined in the distal ureter. The ureter above this filling defect was quite dilated. I then passed the guidewire back up through the lumen of the ureteral access catheter and removed the catheter. We removed the cystoscope and passed a semirigid ureteroscope through the urethra into the bladder. The scope was then advanced into the left ureteral orifice. I was able to visualize the stone in the distal ureter and grasped the stone and a Joanne stone basket. The stone was extracted and sent to pathology for chemical analysis. I reinserted the ureteroscope and found no residual stone fragments. We elected not to place a ureteral stent in this patient. She was taken to the recovery room in stable condition. She tolerated the procedure well.
--- NOTE | 2021-03-19 13:13 | W.ANESPOSTOP ---
Postoperative Evaluation Date, Time and Location Date Performed: 03/19/21 Time Performed: 13:13 Patient Location: PACU Vital Signs Most Recent Imported Vital Signs: Most Recent Vital Signs Temp Pulse Resp BP Pulse Ox 36.2 C L 70 14 91/60 L 100 03/19/21 13:05 03/19/21 13:05 03/19/21 13:05 03/19/21 13:05 03/19/21 13:05 Pain Score Most Recent Pain Score: Most Recent Pain Score Pain Level 0 03/19/21 10:23 Assessment Mental Status: Awake (Alert & Oriented to Patient Baseline) Airway and Respiratory Function: Patent airway with normal (patient baseline) respiratory exam Cardiovascular Function: Hemodynamically Stable Hydration Status: Adequately Hydrated Nausea & Vomiting: No Nausea or Vomiting Pain: Pt. Denies Any Pain Peripheral Nerve Block: Patient did not receive a nerve block
[2021-03-20 12:08] LABS: Source: Left Ureter
== END 2021-03-19 14:00 | disposition home or self-care (01) ==
PROVIDERS: PCP Nurse Practitioner Family; Visit Provider Urology
PROC: (CPT 52320; principal; 2021-03-19 11:15)
DX: N20.1 Calculus of ureter (principal)
CPT/HCPCS: 52320; 74420; 82365; J0690; J1100; J1885; J2001; J2405; J2704

== ENCOUNTER 2021-04-24 01:01 | Outpatient (CLI) | payer MEDICAID, SELFPAY ==
--- NOTE | 2021-04-24 07:00 | DI.US_ITS ---
Exam(s) US RENAL EXAM: US RENAL CLINICAL HISTORY: r/o hydronephrosis after ureteroscopy,CALCULUS DISTAL LT URETER,N20.1. TECHNIQUE: Warner scale, color and spectral Doppler were used. COMPARISON: CT CT RENAL COLIC WO from 03/15/2021 FINDINGS: Renal size in cm: Right: 9.5 cm. Left: 10.4 cm. Echogenicity: Normal. Hydronephrosis: There is mild prominence of the right renal pelvis. This may represent a mild hydron ephrosis. There is no left hydronephrosis. Cyst or mass: No. Nephrolithiasis: No. Other findings: None. Bladder:Normal. Ureteral jets: Right: Visualized and unremarkable. Left: Visualized and unremarkable. Prevoid vol:57 cc Postvoid vol:8 cc Renal color flow: Symmetric and within normal limits. IMPRESSION: 1. There is no evidence of left hydronephrosis. 2. Mild prominence of the right renal pelvis. This may represent hydronephrosis. DATA REPOSITORY:
== END 2021-04-24 01:21 ==
PROVIDERS: PCP Nurse Practitioner Family; Visit Provider Urology
DX: N20.1 Calculus of ureter (principal); N28.89 Other specified disorders of kidney and ureter
CPT/HCPCS: 76770

== ENCOUNTER 2021-05-06 16:33 | Outpatient (REF) | payer MEDICAID, SELFPAY ==
[2021-05-06 15:16] LABS: HCT 40.5 % (36.0-46.0); HGB 13.2 g/dL (11.2-15.7); MCH 30.4 pg (27.0-33.0); MCHC 32.6 % (32.0-36.0); MCV 93.3 fL (80-95); MPV 11.3 fL (8.0-11.0); Platelet Count 194 10^3/uL (130-400); RBC 4.34 10^6/uL (3.93-5.22); WBC 4.95 10^3/uL (4.4-10.8)
[2021-05-06 15:33] LABS: Iron 171 ug/dL (50-170); Total Iron Binding Capacity 320 ug/dL (250-450); Transferrin Sat 53 % (15-50)
[2021-05-06 15:37] LABS: Anion Gap 11.1 mmol/L (3-11); BUN 12 mg/dL (7-18); CO2 26.9 mmol/L (21.0-32.0); CREATININE 0.8 mg/dL (0.55-1.02); Calcium 9.6 mg/dL (8.5-10.1); Chloride 105 mmol/L (98-107); Glucose 84 mg/dL (74-106); Potassium 4.7 mmol/L (3.5-5.1); Sodium 143 mmol/L (136-145)
[2021-05-08 10:57] LABS: HIV-1/2 Ag & Ab Screen Negative (Negative)
[2021-05-08 11:04] LABS: Hepatitis C Ab w Rflx HCV PCR Negative (Negative)
[2021-05-08 15:21] LABS: Chlamydia Result Negative (Negative); GC Result Negative (Negative)
[2021-05-10 16:21] LABS: Syphilis IgG w/Reflex Nonreactive (Nonreactive)
== END 2021-05-06 16:34 | disposition home or self-care (01) ==
LOC: NCHCN 16:33
PROVIDERS: PCP Nurse Practitioner Family; Visit Provider Nurse Practitioner Family
DX: R63.4 Abnormal weight loss (principal); Z11.4 Encounter for screening for human immunodeficiency virus [HIV]; Z11.59 Encounter for screening for other viral diseases; F41.9 Anxiety disorder, unspecified; Z11.3 Encounter for screening for infections with a predominantly sexual mode of transmission; N89.8 Other specified noninflammatory disorders of vagina; Z91.410 Personal history of adult physical and sexual abuse
CPT/HCPCS: 80048; 85027; 86803; 87389; 87491; 87591; 83540; 83550; 86780; 87480; 87510; 87660

== ENCOUNTER 2021-07-08 18:25 | Outpatient (REF) | payer MEDICAID, SELFPAY ==
[2021-07-10 11:40] LABS: COVID-19 RT-PCR UVMMC Result Negative (Negative)
== END 2021-07-08 18:26 | disposition home or self-care (01) ==
LOC: LBN 18:25
PROVIDERS: PCP Nurse Practitioner Family; Visit Provider Physician Assistant Medical
DX: J02.9 Acute pharyngitis, unspecified (principal); Z20.822 Contact with and (suspected) exposure to COVID-19
CPT/HCPCS: 87077; U0003; 87070; 87186

== ENCOUNTER 2022-01-05 15:01 | Outpatient (REF) | payer MEDICAID, SELFPAY ==
[2022-01-07 10:17] LABS: GC Result Negative (Negative)
[2022-01-07 11:19] LABS: Specimen Description URINE
[2022-01-07 11:21] LABS: Chlamydia Result Positive (Negative)
== END 2022-01-05 15:02 | disposition home or self-care (01) ==
LOC: LBN 15:01
PROVIDERS: PCP Nurse Practitioner Family; Visit Provider Nurse Practitioner Women's Health
DX: Z11.3 Encounter for screening for infections with a predominantly sexual mode of transmission (principal)
CPT/HCPCS: 87491; 87591

== ENCOUNTER 2022-03-16 11:31 | Outpatient (REF) | payer MEDICAID, SELFPAY ==
[2022-03-17 13:34] LABS: Chlamydia Result Negative (Negative); GC Result Negative (Negative)
== END 2022-03-16 11:32 | disposition home or self-care (01) ==
LOC: LBN 11:31
PROVIDERS: PCP Nurse Practitioner Family; Visit Provider Nurse Practitioner Women's Health
DX: Z11.3 Encounter for screening for infections with a predominantly sexual mode of transmission (principal)
CPT/HCPCS: 87491; 87591

== ENCOUNTER 2023-11-25 15:56 | Outpatient (REF) | payer BC, SELFPAY ==
--- NOTE | 2023-11-25 10:30 | PAPFT_PTH ---
PATIENT: Melina Robledo LOC: NCN #:[id number] AGE/SX: 28/F ROOM: RE11/25/[address]: Inge Chatman : 1995 BED: DIS: 11/25/2023 SPEC #: [id number] RECD: 11/25/23 17:34 STATUS: NICOLA REChayo #: [id number] LAMAR: 11/25/23 10:[address]: Inge Chatman DEPT: [facility] Cytology RECD BY: Alyson Flanagan Tissues: 1 - CX/ENDOCX FOR PAP SMEARS Procedures: PAP THIN PREP/[facility] Screening Comments: [id number] (CHLAMYDIA/GC)
[2023-11-28 12:41] LABS: Chlamydia Result Negative (Negative); GC Result Negative (Negative)
== END 2023-11-25 15:57 | disposition home or self-care (01) ==
LOC: NCHCN 15:56
PROVIDERS: PCP Nurse Practitioner Family; Visit Provider Nurse Practitioner Family
DX: Z12.4 Encounter for screening for malignant neoplasm of cervix (principal)
CPT/HCPCS: 87491; 87591; 88142